=== PATIENT | male | born 1965 | race Caucasian/White ===

== ENCOUNTER 2017-02-11 21:32 | Emergency (ER) | payer OTHER ==
[~2017-02-11] VITALS: Ht 175.3 cm; Wt 114.3 kg
[2017-02-11 21:44] VITALS: BP_SYST 203
--- NOTE | 2017-02-11 22:32 | NUR ---
Placed in room 04 . Placed on monitor worker, blood pressure machine and pulse oximeter. To gown for exam. Side rails up. Report given to MARY JO Ricketts.
--- NOTE | 2017-02-11 22:35 | NUR ---
Patient AOx4, ambulatory, presents to ER with complaint of right knee pain 10/10 and swelling x2 days. Patient states no injury to site but had surgery to site in 2000. Patient ambulates with cane because he is "unable to bend the knee". No other symptoms or complaints at this time. at bedside.
--- NOTE | 2017-02-11 22:37 | NUR ---
ER MD Dorsey at bedside for medical evaluation.
[2017-02-11] MEDS ORDERED: MORPHINE 4 MG/ML INJ. SYRINGE IM ONE (22:45)
[2017-02-11] MEDS ORDERED: ONDANSETRON HCL 4 MG/5 ML UDC PO ONE (22:45)
--- NOTE | 2017-02-11 23:12 | NUR ---
No adverse reactions noted after medication administration. Will continue to monitor.
[2017-02-12 00:35] VITALS: BP_SYST 169
--- NOTE | 2017-02-12 00:35 | NUR ---
Patient given written and verbal discharge instructions and verbalizes understanding. ER MD discussed with patient the results and treatment provided. Patient in stable condition. ID arm band removed. Rx of Motrin and Tylenol with Codeine #3 given. Patient educated on pain management and to follow up with PMD. Pain Scale 2/10 tolerable to patient.Opportunity for questions provided and answered.
== END 2017-02-12 00:35 | disposition home or self-care (01) ==
LOC: SED 21:32
DX: S83.91XA Sprain of unspecified site of right knee, initial encounter (principal); J45.909 Unspecified asthma, uncomplicated; Z88.6 Allergy status to analgesic agent; X58.XXXA Exposure to other specified factors, initial encounter; Y93.89 Activity, other specified; Y92.89 Other specified places as the place of occurrence of the external cause; Y99.8 Other external cause status
CPT/HCPCS: 29505; 73700; 96372; 99284; J2270; Q0162